=== PATIENT | female | born 1975 | race Asian ===

== ENCOUNTER 2018-04-11 09:19 | Outpatient (CLI) | payer OTHER | END 2018-04-11 09:40 | disposition home or self-care (01) | LOC: MAMO-SONO 09:19 | DX: N63.10 Unspecified lump in the right breast, unspecified quadrant (principal); N63.20 Unspecified lump in the left breast, unspecified quadrant; N64.0 Fissure and fistula of nipple ==

== ENCOUNTER 2018-08-14 13:37 | Outpatient (CLI) | payer OTHER | END 2018-08-14 13:42 | disposition home or self-care (01) | LOC: RAD 13:37 | DX: M25.552 Pain in left hip (principal); M25.512 Pain in left shoulder ==

== ENCOUNTER 2022-06-15 19:50 | Emergency (ER) | payer BC ==
[~2022-06-15] VITALS: Ht 170.2 cm; Wt 59.9 kg
[2022-06-15] MEDS ORDERED: SINGULAIR5 MG PO (20:26)
== END 2022-06-15 21:52 | disposition home or self-care (01) ==
LOC: ER 19:50
DX: S61.321A Laceration with foreign body of left index finger with damage to nail, initial encounter (principal); W26.0XXA Contact with knife, initial encounter; Y93.89 Activity, other specified; Y92.89 Other specified places as the place of occurrence of the external cause; Y99.8 Other external cause status

== ENCOUNTER 2022-06-22 13:27 | Emergency (ER) | payer BC ==
[~2022-06-22] VITALS: Ht 167.6 cm; Wt 55.3 kg
[~2022-06-22 13:27] MED LIST: SINGULAIR5 MG PO
== END 2022-06-22 14:51 | disposition home or self-care (01) ==
LOC: ER 13:27
DX: Z48.02 Encounter for removal of sutures (principal)

== ENCOUNTER 2022-10-22 09:08 | Outpatient (CLI) | payer OTHER | END 2022-10-22 09:13 | disposition home or self-care (01) | LOC: RAD 09:08 | DX: R05.9 Cough, unspecified (principal) ==

== ENCOUNTER 2022-12-12 10:43 | Outpatient (CLI) | payer OTHER | END 2022-12-12 14:35 | disposition home or self-care (01) | LOC: EKG 10:43 | PROVIDERS: ATTEND Surgery Plastic and Reconstructive Surgery | DX: Z01.810 Encounter for preprocedural cardiovascular examination (principal) ==

== ENCOUNTER 2023-01-30 13:12 | Outpatient (CLI) | payer BC | END 2023-01-30 13:17 | disposition home or self-care (01) | LOC: RAD 13:12 | PROVIDERS: ATTEND Internal Medicine Pulmonary Disease | DX: J32.0 Chronic maxillary sinusitis (principal) ==

== ENCOUNTER 2024-07-09 07:41 | Outpatient (CLI) | payer BC | END 2024-07-09 07:55 | disposition home or self-care (01) | LOC: RAD 07:41 | PROVIDERS: ATTEND Internal Medicine | DX: I10 Essential (primary) hypertension (principal); J42 Unspecified chronic bronchitis; E03.9 Hypothyroidism, unspecified; E78.9 Disorder of lipoprotein metabolism, unspecified; E11.51 Type 2 diabetes mellitus with diabetic peripheral angiopathy without gangrene; E11.9 Type 2 diabetes mellitus without complications; G62.9 Polyneuropathy, unspecified; E11.42 Type 2 diabetes mellitus with diabetic polyneuropathy; Z12.11 Encounter for screening for malignant neoplasm of colon; I70.0 Atherosclerosis of aorta ==